=== PATIENT | female | born 1955 | race Caucasian/White ===

== ENCOUNTER → 2016-12-02 17:09 | Outpatient (CLI) | payer BC ==
[2016-11-05 09:38] VITALS: BMI 27.5
[~2016-12-02 17:09] MED LIST: ANORO ELLIPTA1 EACH INH; ASPIRIN EC81 M1 PO; BREO ELLIPTA 11 EACH INH; BREO ELLIPTA 21 EACH; ESTRACE2 MG PO; GABAPENTIN100 MG PO; INCRUSE; KLONOPIN1 MG PO; LASIX40 MG PO; LEVAQUIN500 MG PO; LOSARTAN POTASS25 MG PO; NICODERM C1 PATCH .2 TRANSDERM; NICODERM C1 PATCH .3 TRANSDERM; PREDNISONE20 MG PO; PROVENTIL/2.5 MG/3 M INH; SEREVENT D50 MCG/DIS INH; SYNTHROID50 MCG PO; ULTRAM50 MG PO; VITAMIN D250000 UNIT PO; WELLBUTRIN XL150 M1 PO; ZIAC 10-6.25 MG1 TAB PO
== END | disposition home or self-care (01) ==
LOC: D.MAMMO 11:15
DX: Z12.31 Encounter for screening mammogram for malignant neoplasm of breast (principal)

== ENCOUNTER → 2017-08-31 14:35 | Outpatient (CLI) | payer BC ==
[2016-11-05 09:38] VITALS: BMI 27.5
[~2017-08-31 14:35] MED LIST changes: +BENZONATATE200 MG PO; +BROVANA15 MCG/2 M INH; +FLORAJEN3 CAPS460 MG PO; +FOLIC ACID1 MG PO; +IPRAT-ALBUT 0.5-3 ML UPD; +MUCINEX DM ER1 EAC1 PO; +PREDNISONE10 MG PO; +SINGULAIR10 MG PO
== END | disposition home or self-care (01) ==
LOC: D.CT 14:35
DX: J18.1 Lobar pneumonia, unspecified organism (principal); R04.2 Hemoptysis

== ENCOUNTER 2017-09-06 07:09 | Inpatient (IN) | payer BC ==
[~2017-09-06] VITALS: Ht 162.6 cm; Wt 65.9 kg
[~2017-09-06 07:09] MED LIST changes: -BENZONATATE200 MG PO; -BROVANA15 MCG/2 M INH; -FLORAJEN3 CAPS460 MG PO; -FOLIC ACID1 MG PO; -IPRAT-ALBUT 0.5-3 ML UPD; -MUCINEX DM ER1 EAC1 PO; -PREDNISONE10 MG PO; -SINGULAIR10 MG PO
[2017-09-06 07:49] LABS: BASOPHILS 0.4 % (0-2); HEMATOCRIT 32.8 % (36.0-48.0); HEMOGLOBIN 10.3 g/dL (12-16); IMMATURE GRANULOCYTES 0.4 % (0-5); LYMPHOCYTES 15.8 % (15-50); MCHC 31.4 g/dL (31.0-37.0); MCV 89.1 fL (80.0-100.0); MEAN PLATELET VOLUME 8.8 fL (7.4-10.4); MONOCYTES 11.5 % (2-11); NEUTROPHILS 68.9 % (40-80); RBC 3.68 10x6/uL (4.00-5.40); RDW 14.3 % (11.5-14.5); WBC 13.5 10x3/uL (4.8-10.8)
[2017-09-06 08:08] LABS: CALC OSMOLALITY 280 mosm/kg (275-300); CALCIUM 9.1 mg/dL (8.5-10.1); CARBON DIOXIDE 29.4 mmol/L (21.0-32.0); CHLORIDE - SERUM 106 mmol/L (98-107); CREATININE - SERUM 0.7 mg/dL (0.6-1.3); GLUCOSE 93 mg/dL (74-106); SODIUM 142 mmol/L (136-145); UREA NITROGEN 8 mg/dL (7-18); eGFR NON AFRICAN AMERICAN 89 mL/min (90-120)
[2017-09-06 08:24] LABS: INR 0.95 (0.85-1.17); PLATELET COUNT 564 10x3/uL (130-400); PROTIME 12.5 SECONDS (11.6-15.0)
[2017-09-06 08:34] VITALS: BMI 24.9
--- NOTE | 2017-09-06 14:26 | NUR ---
ASSESSED PULMONARY STATUS. BILATERAL INSPIRATORY AND EXPIRATORY WHEEZES NOTED THROUGHOUT ALL ANTERIOR JIANG OF AUSCULTATION. CURRENTLY ON ROOM AIR SP02 94 HR 74 RR 20 PT IN NO IMMEDIATE S/S OF RESP DISTRESS. TX GIVEN PER DR BARRIOS
--- NOTE | 2017-09-06 15:58 | NUR ---
1555 REPORT GIVEN TO NICK ON MED 2. WILL PL[address] NEW IV PER EBENNADI'S REQUESTS. WILL TRANSFER PATIENT ONCE IV IS STARTED.
--- NOTE | 2017-09-06 15:58 | NUR ---
1025 VITALS CHARTED ON FREQUENT VITALS SHEET.
--- NOTE | 2017-09-06 16:46 | NUR ---
RECEIVED PT VIA WHEELCHAIR FROM OUTPATIENT. PT IS ALERT AND ORIENTED. ON ROOM AIR. NO MONITOR. IV SEEN TO LEFT WRIST THAT IS CURRENTLY SALINE LOCKED. WILL ADMIT PT AND CONTINUE TO MONITOR.
[2017-09-06 16:56] VITALS: BP 159/60; Ht 162.6 cm; Wt 65.9 kg
--- NOTE | 2017-09-06 17:28 | NUR ---
PT IS CURRENTLY LAYING IN BED ON RIGHT SIDE WITH EYES OPEN RESTING. IS AT BEDSIDE. PT DENIES ANY NEED AT THIS CURRENT TIME. BED IS IN LOW POSITION, SIDE RAILS ARE UP X2, AND CALL LIGHT IS IN REACH. WILL CONTINUE TO MONITOR.
--- NOTE | 2017-09-06 17:57 | NUR ---
PT IS CURRENTLY SITTING UP IN BED EATING DINNER TALKING ON PHONE. NO NEED AT THIS CURRENT TIME. WILL CONTINUE TO MONITOR.
--- NOTE | 2017-09-06 19:20 | NUR ---
RECIEVED SHIFT REPORT. PT IS LYING IN BED. ALERT AND ORIENTED AND ABLE TO VERBALIZE NEEDS. IV IS PATENT AND SALINE LOC AT THIS TIME. O2 @ 2 PER NASAL CANNULA PRN. DRESSING TO RIGHT MEDIAL BACK C/D/I. PT IS AMBULATORY BUT WAS INSTRUCTED TO CALL FOR ANY ASSISTANCE NEEDED. PT DENIES ANY PAIN AT THIS TIME. NO NEEDS ARE VERBALIZED AT THIS TIME. WILL CONTINUE TO MONITOR. SIDE RAILS ARE UP X 2. BED IS IN LOWEST POSITION. CALL LIGHT IS WITHIN REACH.
[2017-09-06 20:00] VITALS: BP 154/75
--- NOTE | 2017-09-06 20:12 | NUR ---
SHIFT ASSESSMENT COMPLETED. NIGHT MEDS GIVEN WITH NO PROBLEMS. NO NEEDS ARE VOICED. WILL MONITOR. SIDE RAILS X 2. BED LOW. CALL LIGHT IN REACH.
[2017-09-07] VITALS: BP 122/60
[2017-09-07 04:00] VITALS: BP 119/57
[2017-09-07 06:04] LABS: BASOPHILS 0.4 % (0-2); EOSINOPHILS 2.9 % (0-7); HEMATOCRIT 29.8 % (36.0-48.0); HEMOGLOBIN 9.2 g/dL (12-16); IMMATURE GRANULOCYTES 0.2 % (0-5); LYMPHOCYTES 22.3 % (15-50); MCH 27.4 pg (26.0-34.0); MCHC 30.9 g/dL (31.0-37.0); MCV 88.7 fL (80.0-100.0); MEAN PLATELET VOLUME 9.1 fL (7.4-10.4); MONOCYTES 12.8 % (2-11); NEUTROPHILS 61.4 % (40-80); PLATELET COUNT 564 10x3/uL (130-400); RBC 3.36 10x6/uL (4.00-5.40); RDW 14.4 % (11.5-14.5); WBC 12.3 10x3/uL (4.8-10.8)
[2017-09-07 06:27] LABS: ALBUMIN 2.4 g/dL (3.4-5.0); ALKALINE PHOSPHATASE 147 U/L (46-116); ALT (SGPT) 33 U/L (10-68); CALC OSMOLALITY 276 mosm/kg (275-300); CARBON DIOXIDE 28.8 mmol/L (21.0-32.0); CHLORIDE - SERUM 104 mmol/L (98-107); CREATININE - SERUM 0.7 mg/dL (0.6-1.3); GLUCOSE 106 mg/dL (74-106); POTASSIUM - SERUM 3.6 mmol/L (3.5-5.1); PROTEIN - SERUM 6.5 g/dL (6.4-8.2); SODIUM 140 mmol/L (136-145); UREA NITROGEN 7 mg/dL (7-18); eGFR NON AFRICAN AMERICAN 89 mL/min (90-120)
--- NOTE | 2017-09-07 07:05 | NUR ---
REPORT RECEIVED, ASSUMED CARE OF PT. RESTING, EASILY AROUSED. L WRIST IV SALINE LOCKED, DRSG C/D/I. O2 VIA NASAL CANNULA AT 2L. NO NEEDS VOICED AT THIS TIME. BED IN LOWEST POSITION, SIDE RAILS UP X 2, CALL LIGHT WITHIN REACH.
[2017-09-07 08:40] VITALS: BP 126/60
[2017-09-07 16:11] VITALS: BP 123/55
--- NOTE | 2017-09-07 19:20 | NUR ---
RECIEVED SHIFT REPORT. PT IS LAYING IN BED. ALERT AND ORIENTED AND ABLE TO VERBALIZE NEEDS. IV IS PATENT AND SALINE LOC AT THIS TIME. O2 @ 2 PER NASAL CANNULA. SCD'S ON. PT IS AMBULATORY BUT WAS INSTRUCTED TO CALL FOR ANY ASSISTANCE NEEDED. PT DENIES ANY PAIN AT THIS TIME. WILL CONTINUE TO MONITOR. SIDE RAILS ARE UP X 2. BED IS IN LOWEST POSITION. CALL LIGHT IS WITHIN REACH.
[2017-09-07 20:00] VITALS: BP 122/61
--- NOTE | 2017-09-07 21:46 | NUR ---
SHIFT ASSESSMENT COMPLETED. NIGHT MEDS GIVEN WITH NO PROBLEMS. SIDE RAILS X 2. BED LOW. CALL LIGHT IN REACH.
[2017-09-08] VITALS: BP 137/57
[2017-09-08 04:00] VITALS: BP 148/56
[2017-09-08 05:49] LABS: HEMATOCRIT 31.6 % (36.0-48.0); HEMOGLOBIN 9.9 g/dL (12-16); MCH 27.9 pg (26.0-34.0); MCHC 31.3 g/dL (31.0-37.0); MEAN PLATELET VOLUME 8.9 fL (7.4-10.4); PLATELET COUNT 677 10x3/uL (130-400); RBC 3.55 10x6/uL (4.00-5.40); RDW 14.4 % (11.5-14.5); WBC 20.2 10x3/uL (4.8-10.8)
[2017-09-08 06:23] LABS: ALBUMIN 2.7 g/dL (3.4-5.0); BILIRUBIN - TOTAL 0.1 mg/dL (0.2-1.3); CALCIUM 9.7 mg/dL (8.5-10.1); CARBON DIOXIDE 25.9 mmol/L (21.0-32.0); POTASSIUM - SERUM 3.9 mmol/L (3.5-5.1); PROTEIN - SERUM 7.5 g/dL (6.4-8.2)
[2017-09-08 06:41] LABS: LYMPHOCYTES 3 % (15-50); MONOCYTES 3 % (2-11); NEUTROPHILS 89 % (40-80); PLATELET ESTIMATE INCREASED; ROULEAUX OCC
--- NOTE | 2017-09-08 07:45 | NUR ---
PT AOX4 RESP EVEN AND NONLABORED PT DENIES NEEDS AT THIS TIME IV TO LEFT WRIST PATENT AND INTACT AT THIS TIME SRX2 BED AT LOWEST SETTING CALL LIGHT WITHIN REACH WILL CONTINUE TO MONITOR
[2017-09-08 08:33] VITALS: BP 123/51
[2017-09-08 12:27] VITALS: BP 153/60
[2017-09-08 17:23] VITALS: BP 147/59
--- NOTE | 2017-09-08 19:15 | NUR ---
RECIEVED SHIFT REPORT. PT IS LYING IN BED. ALERT AND ORIENTED AND ABLE TO VERBALIZE NEEDS. IV IS PATENT AND SALINE LOC AT THIS TIME. O2 @ 2 PER NASAL CANNULA. PT DENIES ANY PAIN AT THIS TIME. PT IS AMBULATORY BUT WS INSTRUCTED TO CALL FOR ANY ASSISTANCE NEEDED. SCD'S OFF AT THIS TIME. NO NEEDS ARE VERBALIZED AT THIS TIME. WILL CONTINUE TO MONITOR. DAUGHTER IS AT THE BEDSIDE. SIDE RAILS ARE UP X 2. BED IS IN LOWEST POSITION. CALL LIGHT IS WITHIN REACH.
[2017-09-08 20:00] VITALS: BP 153/61
--- NOTE | 2017-09-08 21:34 | NUR ---
SHIFT ASSESSMENT COMPLETED. NIGHT MEDS GIVEN WITH NO PROBLEMS. NO NEEDS ARE VOICED. WILL MONITOR. SIDE RAILS X 2. BED LOW. CALL LIGHT IN REACH.
[2017-09-09] VITALS: BP 151/66
[2017-09-09 04:00] VITALS: BP 139/60
[2017-09-09 05:37] LABS: BASOPHILS 0 % (0-2); EOSINOPHILS 0 % (0-7); HEMATOCRIT 30.9 % (36.0-48.0); HEMOGLOBIN 9.6 g/dL (12-16); IMMATURE GRANULOCYTES 0.9 % (0-5); LYMPHOCYTES 5.2 % (15-50); MCH 27.8 pg (26.0-34.0); MCHC 31.1 g/dL (31.0-37.0); MCV 89.6 fL (80.0-100.0); MEAN PLATELET VOLUME 9.3 fL (7.4-10.4); MONOCYTES 2.5 % (2-11); NEUTROPHILS 91.4 % (40-80); PLATELET COUNT 691 10x3/uL (130-400); RBC 3.45 10x6/uL (4.00-5.40); RDW 14.9 % (11.5-14.5); WBC 21.4 10x3/uL (4.8-10.8)
[2017-09-09 05:43] LABS: ALBUMIN 2.7 g/dL (3.4-5.0); ALKALINE PHOSPHATASE 138 U/L (46-116); ALT (SGPT) 25 U/L (10-68); CALC OSMOLALITY 283 mosm/kg (275-300); CALCIUM 9.4 mg/dL (8.5-10.1); CARBON DIOXIDE 28.1 mmol/L (21.0-32.0); CHLORIDE - SERUM 104 mmol/L (98-107); CREATININE - SERUM 0.8 mg/dL (0.6-1.3); GLUCOSE 184 mg/dL (74-106); PROTEIN - SERUM 7.2 g/dL (6.4-8.2); SODIUM 140 mmol/L (136-145); eGFR NON AFRICAN AMERICAN 76 mL/min (90-120)
[2017-09-09 06:10] LABS: UREA NITROGEN 13 mg/dL (7-18)
--- NOTE | 2017-09-09 07:00 | NUR ---
REPORT RECIEVED FROM OFF GOING NURSE. SEE FLOW SHEET FOR ASSESSMENT. PT DENIES PAIN. DENIES SOB. NO NEEDS AT THIS TIME. FAMILY AT BED SIDE. CALL LIGHT IN REACH. WILL CONT POC.
[2017-09-09 08:09] VITALS: BP 143/60
--- NOTE | 2017-09-09 10:25 | NUR ---
LEFT FOR NM BODY SCAN VIA WC.
[2017-09-09 12:28] VITALS: BP 152/66
[2017-09-09] MEDS ORDERED: PREDNISONE10 MG PO (13:29)
[2017-09-09] MEDS ORDERED: FLORAJEN3 CAPS460 MG PO (13:29)
[2017-09-09] MEDS ORDERED: MUCINEX DM ER1 EAC1 PO (13:29)
[2017-09-09] MEDS ORDERED: LEVAQUIN500 MG PO (13:29)
[2017-09-09] MEDS ORDERED: FOLIC ACID1 MG PO (13:29)
[2017-09-09] MEDS ORDERED: BROVANA15 MCG/2 M INH (13:29)
[2017-09-09] MEDS ORDERED: BENZONATATE200 MG PO (13:29)
[2017-09-09] MEDS ORDERED: IPRAT-ALBUT 0.5-3 ML UPD (13:29)
[2017-09-09] MEDS ORDERED: SINGULAIR10 MG PO (13:29)
--- NOTE | 2017-09-09 13:45 | NUR ---
BACK IN ROOM. PT BREATHING NORMAL AND UNLABORED. DENIES PAIN CALL LIGHT INR EACH. WILL CONT POC.
--- NOTE | 2017-09-09 15:30 | NUR ---
RT WITH PT WALKING WITHOUT O2 FOR WALK TEST. PT 86%. NO SOB NOTED. DR BECKFORD NOTIFIED.
--- NOTE | 2017-09-09 15:32 | NUR ---
SPOKE WITH FAMILY IN LENGTH ABOUT HOME HEALTH AND DISCHARGE PLANNING. PATIENT WITH NEW DX OF CANCER AND HAVE A TON OF QUESTIONS ANSWERED. PHONE NUMBER OF [facility]ANIEL[facility]IN[facility] GIVEN TO PATIENT. SAMPLES FROM DR BECKFORD'S OFFICE GIVEN. FINANCIAL NUMBER TO HOSPITAL ALSO GIVEN TO FAMILY. PATIENT DISCHARGED HOME WITH FAMILY TO DRIVE HOME. FAMILY STATED THAT THEY WILL WANT HH SET UP WHEN THE TIMES COMES AFTER HER CHEMO STARTS. CM WILL CONTINUE TO HELP AND ASSIST NEEDED WITH DISCHARGE PLANNING NEEDS
--- NOTE | 2017-09-09 16:47 | NUR ---
ALL DISCHARGE INSTURCTIONS WENT OVER WITH PT AND PT'S FAMILY. PT HARD SCRIPTS INCULDING PO CLINDAMYCIN WAS GIVEN TO PT. ALL BELONGINS ACCOUNTED FOR. PT LEFT VIA WC. NO S/SX OF DISTRESS/DISCOMFORT NOTED. BREATHING NORMAL AND UNLABORED. LEFT WITH VIA PERSONAL VEHICHAL DRIVEN BY FAMILY MEMBER.
== END 2017-09-09 17:49 | disposition home or self-care (01) | DRG 180 ==
LOC: D.MS 07:09 → D.OPS 07:09 → D.MS 07:10 → D.CT 09:00 → D.MS 16:18 → D.OPS 16:18 → D.MS 09-09 11:29
PROVIDERS: Nurse Practitioner Family; Specialist; ADMIT Family Medicine
PROC: 0BBK3ZX Excision of Right Lung, Percutaneous Approach, Diagnostic (ICD-10-PCS; principal; 2017-09-06 09:00)
DX: C34.91 Malignant neoplasm of unspecified part of right bronchus or lung (principal); J18.9 Pneumonia, unspecified organism; J44.1 Chronic obstructive pulmonary disease with (acute) exacerbation; I50.22 Chronic systolic (congestive) heart failure; D69.6 Thrombocytopenia, unspecified; Z99.81 Dependence on supplemental oxygen; K21.9 Gastro-esophageal reflux disease without esophagitis; G62.9 Polyneuropathy, unspecified; E03.9 Hypothyroidism, unspecified; I27.20 Pulmonary hypertension, unspecified

== ENCOUNTER → 2017-12-08 12:26 | Outpatient (CLI) | payer BC ==
[~2017-12-08 12:26] MED LIST changes: +BENZONATATE200 MG PO; +BROVANA15 MCG/2 M INH; +FLORAJEN3 CAPS460 MG PO; +FOLIC ACID1 MG PO; +IPRAT-ALBUT 0.5-3 ML UPD; +MUCINEX DM ER1 EAC1 PO; +PREDNISONE10 MG PO; +SINGULAIR10 MG PO
== END | disposition home or self-care (01) ==
LOC: D.CT 12:26
DX: C34.11 Malignant neoplasm of upper lobe, right bronchus or lung (principal); D64.81 Anemia due to antineoplastic chemotherapy

== ENCOUNTER 2018-05-16 06:23 | Outpatient (CLI) | payer MEDICAID | END 2018-05-16 23:59 | disposition home or self-care (01) | LOC: D.MAMMO 06:23 | DX: Z12.31 Encounter for screening mammogram for malignant neoplasm of breast (principal) ==

== ENCOUNTER → 2018-07-12 08:19 | Outpatient (CLI) | payer MEDICARE | END | disposition home or self-care (01) | LOC: D.CT 08:19 | DX: C34.11 Malignant neoplasm of upper lobe, right bronchus or lung (principal) ==

== ENCOUNTER → 2018-08-10 09:25 | Outpatient (CLI) | payer MEDICARE | END | disposition home or self-care (01) | LOC: D.RT 09:25 | DX: J44.9 Chronic obstructive pulmonary disease, unspecified (principal) ==

== ENCOUNTER → 2018-10-25 08:16 | Outpatient (CLI) | payer MEDICARE | END | disposition home or self-care (01) | LOC: D.CT 08:16 | DX: C34.11 Malignant neoplasm of upper lobe, right bronchus or lung (principal) ==

== ENCOUNTER → 2019-11-24 08:20 | Outpatient (CLI) | payer MEDICARE ==
--- NOTE | 2019-11-27 12:18 | EC ---
PATIENT:TRAM DYER DATE OF SERVICE: 11/24/19 SEX: F MEDICAL RECORD: [id number] DATE OF : 51 LOCATION:D.[facility] AGE OF PATIENT: 64 ADMISSION DATE: 11/24/19 REFERRING PHYSICIAN: INTERPRETING PHYSICIAN: LONNIE REDDY MD ECHOCARDIOGRAM REPORT ECHO CHARGES 4 ECHO COMPLETE Date: 11/24/19 CLINICAL DIAGNOSIS: PULMONARY HTN ECHOCARDIOGRAPHIC MEASUREMENTS (adult normal given) AC root (d.<3.7cm) 2.6 cm LV Septum d (<1.2 cm> 0.9 cm Valve Excursion 1.6 cm LV Septum (systole) 1.2 cm Left Atria (s.<4.0cm> 3.8 cm LVPW d(<1.2cm) 0.9 cm RV (d.<2.3cm) 3.1 cm LVPW (sytole) 1.3 cm LV diastole(<5.6CM) 5.7 cm MV E-F(>70mm/sec) cm LV systole 3.8 cm LVOT Diameter 1.8 cm MV exc.(>10mm) cm Est.ejection fraction (50-75%) % DOPPLER: LVIT cm/sec A 77 cm/sec E 101 cm/sec LA cm/sec RVSP 18.6 mmHg LVOT 92 cm/sec AOP1/2T m/s Asc. Ao 144 cm/sec RVOT 87 cm/sec RA cm/sec PA 103 cm/sec AV Gradient Peak 8.3 mmHg AV Mean 4.2 mmHg AV Area 1.9 cm MV Gradient Peak 5.3 mmHg MV Mean 2.6 mmHg MV Area cm COMMENTS: Electrifier Operator: Dolores [place] Generator Mechanic: 3 Dr. Griffin TAPE# PACS Pericardial Effusion N DATE OF SERVICE: Adequate 2D, color flow imaging, spectral Doppler, and M-Mode. No LVH. LV internal dimensions are normal. Wall motion is normal. EF is greater than or equal to 55%. Aortic valve is tricuspid. No evidence of stenosis by Doppler interrogation. Left atrium is normal. Mitral shows no prolapse. Trace MR. Right-sided chambers are grossly normal. Trace TR. RV systolic pressure is estimated at 18 mmHg. ECHOCARDIOGRAM REPORT [id number] TRAM DYER TRANSINT:[id number] Voice Confirmation ID: [id number] DOCUMENT ID: [id number] LONNIE REDDY MD at 1218 CC: [id number] DICTATION DATE: 11/24/19 1321 MOTOR EQUIPMENT SERGEANT: 11/24/192102 DEP CLI 11/24/19 [facility] [address] [place] [address]
== END | disposition home or self-care (01) ==
LOC: D.RT 10-26 13:00 → D.RAD 10-26 14:00 → D.RT 10-26 14:30 → D.RAD 10-26 14:30 → D.RT 08:20 → D.ECHO 10:05 → D.RT 11-28 14:00
PROVIDERS: ATTEND Internal Medicine Pulmonary Disease
DX: J44.9 Chronic obstructive pulmonary disease, unspecified (principal); I27.20 Pulmonary hypertension, unspecified

== ENCOUNTER 2019-12-29 07:35 | Day surgery (SDC) | payer MEDICARE ==
[2019-12-26 12:12] LABS: BASOPHILS 0.4 % (0-2); EOSINOPHILS 1.1 % (0-7); HEMATOCRIT 40.5 % (36.0-48.0); IMMATURE GRANULOCYTES 0.4 % (0-5); LYMPHOCYTES 22.8 % (15-50); MCH 31.1 pg (26.0-34.0); MCHC 32.1 g/dL (31.0-37.0); MCV 96.9 fL (80.0-100.0); MEAN PLATELET VOLUME 9.3 fL (7.4-10.4); MONOCYTES 7.8 % (2-11); NEUTROPHILS 67.5 % (40-80); RBC 4.18 10x6/uL (4.00-5.40); RDW 13.6 % (11.5-14.5); WBC 10.7 10x3/uL (4.8-10.8)
[2019-12-26 12:19] LABS: CALC OSMOLALITY 275 mosm/kg (275-300); CALCIUM 8.8 mg/dL (8.5-10.1); CARBON DIOXIDE 32.5 mmol/L (21.0-32.0); CHLORIDE - SERUM 102 mmol/L (98-107); CREATININE - SERUM 0.8 mg/dL (0.6-1.3); POTASSIUM - SERUM 4.1 mmol/L (3.5-5.1); SODIUM 139 mmol/L (136-145); UREA NITROGEN 11 mg/dL (7-18); eGFR NON AFRICAN AMERICAN 76 mL/min (90-120)
[2019-12-26 12:22] LABS: GLUCOSE 81 mg/dL (74-106)
[2019-12-26 12:23] LABS: PLATELET COUNT 307 10x3/uL (130-400)
[~2019-12-29] VITALS: Ht 162.6 cm; Wt 78.0 kg
--- NOTE | ~2019-12-29 | OP ---
PATIENT NAME: TRAM DYER MEDICAL RECORD: [id number] :51 LOCATION:D.[facility] ADMISSION DATE: SURGEON: NOHELIA MORRELL MD DATE OF OPERATION: 12/29/2019 PREOPERATIVE DIAGNOSIS: Vulvitis refractory to conventional treatment. POSTOPERATIVE DIAGNOSIS: Vulvitis refractory to conventional treatment. PROCEDURES: Vulvar biopsy. SURGEON: Nohelia Morrell MD ANESTHESIA: General endotracheal. INTRAVENOUS FLUIDS: Per anesthesia record. FINDINGS: Vulvitis consistent with lichen sclerosus, however, refractory to topical steroids. COMPLICATIONS: None. SPECIMENS: Punch biopsy times 3. COMPLICATIONS: None apparent. DESCRIPTION OF PROCEDURE: The patient was taken to the operating room, where general anesthesia was achieved without any difficulty. The patient was then prepped and draped in normal sterile fashion. The vulva was cleaned with chlorhexidine solution and the bladder was drained of approximately 100 cc of clear yellow urine. At that point, a careful examination was made of the vulvar area. A 2-mm punch biopsy was taken on the left vulva, the right vulva, and at the perineal skin. Good hemostasis was noted following pressure at each vulvar spot and Vaseline was placed over each vulvar biopsy. The patient tolerated the procedure well, was transported to postanesthesia recovery stable and without incident. TRANSINT:[id number] Voice Confirmation ID: [id number] DOCUMENT ID: [id number] NOHELIA MORRELL MD CC: [id number] DICTATION DATE: 01/09/20 0753 CRIME PREVENTION WORKER: 01/09/20 0846 [facility] 12/29/19 [id number] [place] [address]
[~2019-12-29 07:35] MED LIST changes: +SYNTHROID150 MCG PO; -SYNTHROID50 MCG PO; +VITAMIN D10000 UNI1 PO
[2019-12-29 08:12] VITALS: BP 156/65; Ht 162.6 cm; Wt 78.0 kg
== END 2019-12-29 13:00 | disposition home or self-care (01) ==
LOC: D.OPS 07:35 → D.PAN 09:30 → D.OPS 10:30
PROVIDERS: Anesthesiology; Student in an Organized Health Care Education/Training Program; ATTEND Obstetrics & Gynecology
DX: N76.2 Acute vulvitis (principal); L90.0 Lichen sclerosus et atrophicus

== ENCOUNTER 2020-05-21 13:04 | Emergency (ER) | payer MEDICARE ==
[~2020-05-21] VITALS: Ht 162.6 cm; Wt 79.1 kg
[2020-05-21 13:14] VITALS: Ht 162.6 cm; Wt 79.1 kg
[2020-05-21 14:11] LABS: BASOPHILS 0.1 % (0-2); HEMATOCRIT 39.8 % (36.0-48.0); HEMOGLOBIN 12.5 g/dL (12-16); IMMATURE GRANULOCYTES 2.2 % (0-5); LYMPHOCYTES 11.7 % (15-50); MCHC 31.4 g/dL (31.0-37.0); MCV 95.7 fL (80.0-100.0); MONOCYTES 8.8 % (2-11); NEUTROPHILS 76.2 % (40-80); RBC 4.16 10x6/uL (4.00-5.40); WBC 14.8 10x3/uL (4.8-10.8)
[2020-05-21 14:12] LABS: PLATELET COUNT 424 10x3/uL (130-400)
[2020-05-21 14:21] LABS: CALC OSMOLALITY 272 mosm/kg (275-300); CALCIUM 8.3 mg/dL (8.5-10.1); CARBON DIOXIDE 30.3 mmol/L (21.0-32.0); CHLORIDE - SERUM 100 mmol/L (98-107); CREATININE - SERUM 0.9 mg/dL (0.6-1.3); GLUCOSE 92 mg/dL (74-106); POTASSIUM - SERUM 3.6 mmol/L (3.5-5.1); SODIUM 135 mmol/L (136-145); UREA NITROGEN 21 mg/dL (7-18); eGFR NON AFRICAN AMERICAN 66 mL/min (90-120)
[2020-05-21 14:38] LABS: ALBUMIN 2.9 g/dL (3.4-5.0); ALKALINE PHOSPHATASE 101 U/L (30-120); ALT (SGPT) 18 U/L (10-68); BILIRUBIN - TOTAL 0.33 mg/dL (0.2-1.3); CKMB 3.6 U/L (0.0-3.6); CREATINE KINASE 70 UL (21-215); PROTEIN - SERUM 6.6 g/dL (6.4-8.2); TROPONIN-I < 0.017 ng/mL (0.000-0.060)
[2020-05-21 14:45] LABS: APTT 26.7 SECONDS (22.8-39.4); INR 0.89 (0.85-1.17)
[2020-05-21 15:39] LABS: BILIRUBIN NEGATIVE (NEGATIVE); GLUCOSE NEGATIVE (NEGATIVE); KETONE NEGATIVE (NEGATIVE); NITRITE NEGATIVE (NEGATIVE); SPECIFIC GRAVITY 1.015 (1.005-1.020); UROBILINOGEN NORMAL (NORMAL)
[2020-05-21] MEDS ORDERED: LEVOFLOXACIN500 MG PO (16:11)
[2020-05-21 17:02] VITALS: BP 139/62
== END 2020-05-21 17:03 | disposition home or self-care (01) ==
LOC: D.ER 13:04
PROVIDERS: Family Medicine
DX: J18.9 Pneumonia, unspecified organism (principal); R05 Cough; R50.9 Fever, unspecified; G62.9 Polyneuropathy, unspecified; E07.9 Disorder of thyroid, unspecified; I10 Essential (primary) hypertension; J44.9 Chronic obstructive pulmonary disease, unspecified; Z99.81 Dependence on supplemental oxygen; R53.1 Weakness

== ENCOUNTER 2020-05-26 10:44 | Emergency (ER) | payer MEDICARE ==
[~2020-05-26] VITALS: Ht 162.6 cm; Wt 76.8 kg
[~2020-05-26 10:44] MED LIST changes: +LEVOFLOXACIN500 MG PO
[2020-05-26 10:52] VITALS: Ht 162.6 cm; Wt 76.8 kg
[2020-05-26] MEDS ORDERED: B12 INJECTIONS (10:54)
[2020-05-26] MEDS ORDERED: LEVAQUIN (10:54)
[2020-05-26 11:25] LABS: HEMATOCRIT 38.6 % (36.0-48.0); HEMOGLOBIN 12.5 g/dL (12-16); LYMPHOCYTES 10.5 % (15-50); MCH 30.6 pg (26.0-34.0); MCHC 32.4 g/dL (31.0-37.0); MCV 94.4 fL (80.0-100.0); MEAN PLATELET VOLUME 8.9 fL (7.4-10.4); NEUTROPHILS 78.1 % (40-80); PLATELET COUNT 310 10x3/uL (130-400); RBC 4.09 10x6/uL (4.00-5.40); RDW 12.9 % (11.5-14.5); WBC 13.2 10x3/uL (4.8-10.8)
[2020-05-26 11:33] LABS: BILIRUBIN NEGATIVE (NEGATIVE); GLUCOSE NEGATIVE (NEGATIVE); KETONE NEGATIVE (NEGATIVE); NITRITE NEGATIVE (NEGATIVE); UROBILINOGEN NORMAL (NORMAL)
[2020-05-26 11:34] LABS: CALC OSMOLALITY 269 mosm/kg (275-300); CALCIUM 8.9 mg/dL (8.5-10.1); CARBON DIOXIDE 27.6 mmol/L (21.0-32.0); CHLORIDE - SERUM 99 mmol/L (98-107); CREATININE - SERUM 1.1 mg/dL (0.6-1.3); GLUCOSE 116 mg/dL (74-106); POTASSIUM - SERUM 3.9 mmol/L (3.5-5.1); SODIUM 135 mmol/L (136-145); UREA NITROGEN 9 mg/dL (7-18); eGFR NON AFRICAN AMERICAN 53 mL/min (90-120)
[2020-05-26 11:35] LABS: APTT 28.9 SECONDS (22.8-39.4); INR 0.94 (0.85-1.17); PROTIME 12.5 SECONDS (11.6-15.0)
[2020-05-26 11:49] LABS: ALBUMIN 2.5 g/dL (3.4-5.0); ALKALINE PHOSPHATASE 102 U/L (30-120); ALT (SGPT) 11 U/L (10-68); CKMB 0.3 U/L (0.0-3.6); CREATINE KINASE 13 UL (21-215); PRO BNP 164 pg/mL (0-125)
[2020-05-26 11:52] LABS: TROPONIN-I < 0.017 ng/mL (0.000-0.060)
[2020-05-26 13:23] VITALS: BP 128/72
[2020-05-27] MEDS ORDERED: LEVAQUIN750 MG PO (14:57)
== END 2020-05-26 13:24 | disposition home or self-care (01) ==
LOC: D.ER 10:44
PROVIDERS: Family Medicine
DX: R53.1 Weakness (principal); R05 Cough; R50.9 Fever, unspecified; E07.9 Disorder of thyroid, unspecified; I10 Essential (primary) hypertension; J44.9 Chronic obstructive pulmonary disease, unspecified; C34.90 Malignant neoplasm of unspecified part of unspecified bronchus or lung